=== PATIENT | female | born 1950 | race African-American/Black ===

== ENCOUNTER 2017-04-12 13:13 | Emergency (ER) | payer MEDICAID ==
[~2017-04-12] VITALS: Ht 165.1 cm; Wt 63.0 kg
[~2017-04-12 13:13] MED LIST: AMLO10TA80 PO; ASPI-1159 PO; ATEN50TA PO; BENA40TA3 PO; GABA-531 PO; GLIP10TA10 PO; METF500T4 PO; NORT10CA PO; PARO30TA62 PO; PIOG45TA5 PO; TEMA30CA PO
[2017-04-12 13:38] VITALS: BP 175/77
== END 2017-04-12 16:21 | disposition left against medical advice (07) ==
LOC: ER 13:48
DX: Z53.21 Procedure and treatment not carried out due to patient leaving prior to being seen by health care provider (principal)

== ENCOUNTER 2018-05-04 06:49 | Inpatient (IN) | payer MEDICARE, MEDICAID ==
[~2018-05-04] VITALS: Ht 162.6 cm; Wt 74.4 kg
[~2018-05-04 06:49] MED LIST changes: -BENA40TA3 PO; +BENA40TA9 PO; +METF-414 PO; -METF500T4 PO
[2018-05-04] MEDS ORDERED: MORPHINE SULFATE 4 MG/ML CPJ (NOT FOR IM USE) IV STA (07:11)
[2018-05-04] MEDS ORDERED: ONDANSETRON HCL 4MG/2ML INJ IV STA (07:11)
[2018-05-04] MEDS ORDERED: SODIUM CHLORIDE 0.9% 1,000 ML IV ONE (07:11)
[2018-05-04] MEDS ORDERED: MORPHINE SULFATE 10 MG/ML CPJ IV NR (07:45)
[2018-05-04 07:49] LABS: BASOPHILS % 0.5 % (0.0-2.0); EOSINOPHILS % 0.3 % (0.0-5.0); HEMATOCRIT. 44.9 % (36.0-48.0); HEMOGLOBIN. 15.3 g/dL (12.0-16.0); LYMPHOCYTES % 22.2 % (20.0-50.0); MEAN CORPUSCULAR HEMOGLOBIN 28.2 pg (28.0-32.0); MEAN CORPUSCULAR VOLUME 82.5 fL (81.0-99.0); MEAN PLATELET VOLUME 9.2 fl (7.4-10.4); MONOCYTES % 3.2 % (2.0-8.0); NEUTROPHILS % 73.8 % (40.0-76.0); PLATELET 189 x1000/uL (130-400); RED BLOOD CELL COUNT 5.44 mill/uL (4.2-5.4); RED CELL DISTRIBUTION WIDTH 15.8 % (11.6-14.6)
[2018-05-04] MEDS ORDERED: SODIUM CHLORIDE 0.9% 1000ML BAG (SEPSIS BOLUS) IV ONE (09:00)
[2018-05-04 09:03] LABS: PROTHROMBIN TIME 10.3 sec (9.1-11.1)
[2018-05-04 09:06] LABS: CHLORIDE 101 mEq/L (98-107)
[2018-05-04 09:10] LABS: ETHANOL BLOOD < 10 mg/dL
[2018-05-04] MEDS ORDERED: IOHEXOL-300 100 ML BOTTLE ONE (11:25)
[2018-05-04 12:36] LABS: CLARITY URINE CLEAR (CLEAR); COLOR URINE YELLOW (YELLOW); KETONES URINE 1+ (NEGATIVE); LEUKOCYTE ESTERASE URINE NEGATIVE (NEGATIVE); NITRITE URINE NEGATIVE (NEGATIVE); OCCULT BLOOD URINE 1+ (NEGATIVE); PH URINE 7.5 (4.5-8.0); PROTEIN URINE 1+ (NEGATIVE); SPECIFIC GRAVITY URINE 1.023 (1.005-1.030); UROBILINOGEN URINE 0.2 E.U./dL (0.2-1.0)
[2018-05-04 18:00] VITALS: BP 125/89
[2018-05-04] MEDS ORDERED: MAGNESIUM/ALUMINUM HYDROXIDE/SIMETHICONE 30ML UDC PO PRN (18:00)
[2018-05-04] MEDS ORDERED: ACETAMINOPHEN 325MG TABLET PO PRN (18:00)
[2018-05-04 18:07] VITALS: BP 125/89
[2018-05-04] MEDS: HYDROMORPHONE HCL/PF 2MG/ML CPJ IV PRN (18:24)
[2018-05-04] MEDS: PANTOPRAZOLE SODIUM 40 MG/VIAL IV SCH (18:25)
[2018-05-04] MEDS: ONDANSETRON HCL 4MG/2ML INJ IV PRN (18:26)
[2018-05-04] MEDS ORDERED: DEXTROSE 50% WATER 50ML SYRINGE IV PRN (18:45)
[2018-05-04 20:00] VITALS: BP 101/68
[2018-05-04] MEDS: DEXT 5%/0.45% NACL 1000ML 1,000 ML IV SCH (20:26)
[2018-05-04] MEDS: BLOOD SUGAR DIAGNOSTIC STRIP TEST SCH (21:44)
[2018-05-04] MEDS: INSULIN LISPRO 100 UNITS/ML SUBCUT SCH (21:48)
[2018-05-04 22:32] LABS: *AMPHETAMINES SCREEN URINE NEGATIVE (NEGATIVE); *BARBITURATES SCREEN URINE NEGATIVE (NEGATIVE); *BENZODIAZEPINES SCREEN URINE NEGATIVE (NEGATIVE); CANNABINOID URINE SCREEN PRESUMTIVE POSITIVE (NEGATIVE); OPIATES URINE SCREEN PRESUMTIVE POSITIVE (NEGATIVE); PHENCYCLIDINE URINE SCREEN NEGATIVE (NEGATIVE)
[2018-05-04 22:33] LABS: *COCAINE SCREEN URINE NEGATIVE (NEGATIVE); METHADONE URINE SCREEN NEGATIVE (NEGATIVE)
[2018-05-04 22:39] LABS: CREATINE KINASE 134 IU/L (26-192)
[2018-05-05] VITALS (8 sets, daily range): BP systolic 112–163; BP diastolic 65–80
[2018-05-05] MEDS: ONDANSETRON HCL 4MG/2ML INJ IV PRN ×2 (03:49→09:29)
[2018-05-05] MEDS: HYDROMORPHONE HCL/PF 2MG/ML CPJ IV PRN ×3 (03:50→21:58)
[2018-05-05] MEDS ORDERED: PARO40TA75 PO (05:12)
[2018-05-05] MEDS ORDERED: AMLO10TA80 PO (05:12)
[2018-05-05] MEDS ORDERED: BENA40TA9 PO (05:12)
[2018-05-05] MEDS ORDERED: ASPI-1158 PO (05:12)
[2018-05-05] MEDS ORDERED: ATEN100T PO (05:12)
[2018-05-05] MEDS ORDERED: HYDR-459 PO (05:12)
[2018-05-05] MEDS ORDERED: ATOR10TA69 PO (05:12)
[2018-05-05] MEDS ORDERED: SIMV20TA6 PO (05:12)
[2018-05-05] MEDS: DEXT 5%/0.45% NACL 1000ML 1,000 ML IV SCH ×2 (05:19→18:55)
[2018-05-05] MEDS: BLOOD SUGAR DIAGNOSTIC STRIP TEST SCH ×4 (05:22→21:58)
[2018-05-05 06:13] LABS: CHLORIDE 98 mEq/L (98-107)
[2018-05-05 06:23] LABS: CREATINE KINASE MB FRACTION 3.5 ng/mL (0.5-3.6)
[2018-05-05 06:26] LABS: CREATINE KINASE 275 IU/L (26-192); T4 FREE 1.47 ng/dL (0.76-1.46)
[2018-05-05 06:27] LABS: HDL CHOLESTEROL 61 mg/dL (40-59); LDL CHOLESTEROL 68 mg/dL (5-100)
[2018-05-05 06:33] LABS: BASOPHILS % 0.3 % (0.0-2.0); EOSINOPHILS % 0.1 % (0.0-5.0); HEMATOCRIT. 38.8 % (36.0-48.0); HEMOGLOBIN. 12.7 g/dL (12.0-16.0); LYMPHOCYTES % 14.4 % (20.0-50.0); MEAN CORPUSCULAR HEMOGLOBIN 28.1 pg (28.0-32.0); MEAN CORPUSCULAR VOLUME 85.6 fL (81.0-99.0); MEAN PLATELET VOLUME 9.8 fl (7.4-10.4); MONOCYTES % 9.5 % (2.0-8.0); NEUTROPHILS % 75.7 % (40.0-76.0); PLATELET 164 x1000/uL (130-400); RED BLOOD CELL COUNT 4.53 mill/uL (4.2-5.4); RED CELL DISTRIBUTION WIDTH 14.1 % (11.6-14.6)
[2018-05-05] MEDS: PANTOPRAZOLE SODIUM 40 MG/VIAL IV SCH ×2 (08:49→13:34)
[2018-05-05] MEDS: INSULIN LISPRO 100 UNITS/ML SUBCUT SCH ×4 (08:51→21:58)
[2018-05-05] MEDS: METOCLOPRAMIDE HCL 10MG/2ML VIAL IV PRN (10:54)
[2018-05-05] MEDS: CLONIDINE 0.1MG TABLET PO PRN ×2 (11:07→20:37)
[2018-05-05] MEDS: AMLODIPINE 10MG TABLET PO SCH (13:36)
[2018-05-05] MEDS: ATENOLOL 100 MG TABLET PO SCH (13:49)
[2018-05-05] MEDS: ATORVASTATIN CALCIUM 10MG TABLET PO SCH (20:37)
[2018-05-06] VITALS (7 sets, daily range): BP systolic 108–170; BP diastolic 57–72
[2018-05-06] MEDS: CLONIDINE 0.1MG TABLET PO PRN (05:56)
[2018-05-06] MEDS: BLOOD SUGAR DIAGNOSTIC STRIP TEST SCH ×4 (06:22→20:42)
[2018-05-06] MEDS: INSULIN LISPRO 100 UNITS/ML SUBCUT SCH ×4 (08:55→20:50)
[2018-05-06] MEDS: METOCLOPRAMIDE HCL 10MG/2ML VIAL IV PRN (08:55)
[2018-05-06] MEDS: HYDROMORPHONE HCL/PF 2MG/ML CPJ IV PRN ×2 (08:57→21:27)
[2018-05-06] MEDS: ATENOLOL 100 MG TABLET PO SCH (08:57)
[2018-05-06] MEDS: AMLODIPINE 10MG TABLET PO SCH (08:57)
[2018-05-06] MEDS: PANTOPRAZOLE SODIUM 40 MG/VIAL IV SCH ×2 (08:57→08:58)
[2018-05-06] MEDS: DEXT 5%/0.45% NACL 1000ML 1,000 ML IV SCH ×2 (08:58→20:39)
[2018-05-06] MEDS: ATORVASTATIN CALCIUM 10MG TABLET PO SCH (20:39)
[2018-05-07 04:00] VITALS: BP 148/72
[2018-05-07] MEDS: BLOOD SUGAR DIAGNOSTIC STRIP TEST SCH ×2 (07:40→12:40)
[2018-05-07 07:56] LABS: BASOPHILS % 0.7 % (0.0-2.0); EOSINOPHILS % 1.5 % (0.0-5.0); HEMATOCRIT. 39.6 % (36.0-48.0); LYMPHOCYTES % 32.5 % (20.0-50.0); MEAN CORPUSCULAR HEMOGLOBIN 27.9 pg (28.0-32.0); MEAN CORPUSCULAR VOLUME 85.2 fL (81.0-99.0); MEAN PLATELET VOLUME 9.7 fl (7.4-10.4); MONOCYTES % 8.7 % (2.0-8.0); NEUTROPHILS % 56.6 % (40.0-76.0); PLATELET 143 x1000/uL (130-400); RED BLOOD CELL COUNT 4.65 mill/uL (4.2-5.4)
[2018-05-07 08:00] VITALS: BP 179/91
[2018-05-07] MEDS: AMLODIPINE 10MG TABLET PO SCH (08:29)
[2018-05-07] MEDS: INSULIN LISPRO 100 UNITS/ML SUBCUT SCH ×2 (08:29→13:51)
[2018-05-07] MEDS: METOCLOPRAMIDE HCL 10MG/2ML VIAL IV PRN (08:30)
[2018-05-07] MEDS: CLONIDINE 0.1MG TABLET PO PRN (08:30)
[2018-05-07] MEDS: ATENOLOL 100 MG TABLET PO SCH (08:30)
[2018-05-07] MEDS: HYDROMORPHONE HCL/PF 2MG/ML CPJ IV PRN (08:32)
[2018-05-07] MEDS: PANTOPRAZOLE SODIUM 40 MG/VIAL IV SCH (08:54)
[2018-05-07 09:51] LABS: CHLORIDE 107 mEq/L (98-107)
[2018-05-07 12:00] VITALS: BP 166/72
[2018-05-07 13:16] VITALS: BP 166/72
[2018-05-08] MEDS ORDERED: FAMOTIDINE 20MG/2ML VIAL IV SCH (09:00)
== END 2018-05-07 14:40 | disposition home or self-care (01) | DRG 440 ==
LOC: ER 06:49 → 7WST 09:42 → EDBEDREQ 09:47 → ENRESERV 15:15
PROVIDERS: ADMIT Hospitalist; ATTEND Hospitalist
DX: K85.90 Acute pancreatitis without necrosis or infection, unspecified (principal); E11.43 Type 2 diabetes mellitus with diabetic autonomic (poly)neuropathy; I10 Essential (primary) hypertension; K31.84 Gastroparesis; E11.65 Type 2 diabetes mellitus with hyperglycemia; F17.210 Nicotine dependence, cigarettes, uncomplicated; Z98.51 Tubal ligation status; Z79.82 Long term (current) use of aspirin; Z79.899 Other long term (current) drug therapy
CPT/HCPCS: 36415; 71045; 74177; 80061; 80305; 82550; 82553; 82962; 83036; 83605; 83735; 83880; 84439; 84443; 84484; 86850; 86900; 93005; 93970; 96374; 99285; C1893; C9113; G0482; J1170; J1815; J2270; J2405; J2765; J3490; J7030; Q9967

== ENCOUNTER 2018-07-17 07:48 | Inpatient (IN) | payer OTHER, MEDICAID ==
[~2018-07-17] VITALS: Ht 165.1 cm; Wt 68.0 kg
[~2018-07-17 07:48] MED LIST changes: +ASPI-1158 PO; -ASPI-1159 PO; +ATEN100T PO; -ATEN50TA PO; +ATOR10TA69 PO; -GABA-531 PO; -GLIP10TA10 PO; +HYDR-459 PO; -METF-414 PO; -NORT10CA PO; -PARO30TA62 PO; +PARO40TA75 PO; -PIOG45TA5 PO; +SIMV20TA6 PO; -TEMA30CA PO
[2018-07-17] MEDS ORDERED: SODIUM CHLORIDE 0.9% 1,000 ML IV ONE (08:35)
[2018-07-17] MEDS ORDERED: FAMOTIDINE 20MG/2ML VIAL IV STA (08:35)
[2018-07-17] MEDS ORDERED: ONDANSETRON HCL 4MG/2ML INJ IV STA (08:35)
[2018-07-17] MEDS ORDERED: MORPHINE SULFATE 4 MG/ML CPJ (NOT FOR IM USE) IV STA (08:35)
[2018-07-17 08:57] LABS: BASOPHILS % 0.7 % (0.0-2.0); EOSINOPHILS % 0.1 % (0.0-5.0); HEMATOCRIT. 42.9 % (36.0-48.0); HEMOGLOBIN. 14.1 g/dL (12.0-16.0); LYMPHOCYTES % 18.2 % (20.0-50.0); MEAN CORPUSCULAR HEMOGLOBIN 28.3 pg (28.0-32.0); MEAN CORPUSCULAR VOLUME 85.9 fL (81.0-99.0); MEAN PLATELET VOLUME 9.1 fl (7.4-10.4); PLATELET 148 x1000/uL (130-400); RED CELL DISTRIBUTION WIDTH 14.5 % (11.6-14.6)
[2018-07-17 09:05] LABS: CHLORIDE 98 mEq/L (98-107)
[2018-07-17 09:08] LABS: INR 1.1; PARTIAL THROMBOPLASTIN TIME 26.3 sec (23.4-31.0); PROTHROMBIN TIME 10.7 sec (9.1-11.1)
[2018-07-17 09:13] LABS: ETHANOL BLOOD < 10 mg/dL
[2018-07-17 10:07] LABS: CLARITY URINE CLEAR (CLEAR); COLOR URINE YELLOW (YELLOW); KETONES URINE 2+ (NEGATIVE); LEUKOCYTE ESTERASE URINE NEGATIVE (NEGATIVE); NITRITE URINE NEGATIVE (NEGATIVE); OCCULT BLOOD URINE 2+ (NEGATIVE); PROTEIN URINE 3+ (NEGATIVE); SPECIFIC GRAVITY URINE 1.024 (1.005-1.030)
[2018-07-17 10:54] LABS: *BARBITURATES SCREEN URINE NEGATIVE (NEGATIVE); *BENZODIAZEPINES SCREEN URINE NEGATIVE (NEGATIVE); *COCAINE SCREEN URINE NEGATIVE (NEGATIVE); CANNABINOID URINE SCREEN PRESUMTIVE POSITIVE (NEGATIVE); METHADONE URINE SCREEN NEGATIVE (NEGATIVE); PHENCYCLIDINE URINE SCREEN NEGATIVE (NEGATIVE)
[2018-07-17 11:14] LABS: *AMPHETAMINES SCREEN URINE NEGATIVE (NEGATIVE)
[2018-07-17 11:18] LABS: OPIATES URINE SCREEN NEGATIVE (NEGATIVE)
[2018-07-17] MEDS ORDERED: ASPIRIN 325MG EC TABLET PO ONE (12:15)
[2018-07-17] MEDS ORDERED: METOCLOPRAMIDE HCL 10MG/2ML VIAL IV ONE (12:30)
[2018-07-17] MEDS ORDERED: ENOXAPARIN 60MG/0.6ML SYR SUBCUT ONE (12:45)
[2018-07-17] MEDS ORDERED: NITROGLYCERIN 0.4MG TABLET SL SL PRN (13:15)
[2018-07-17] MEDS ORDERED: MAGNESIUM/ALUMINUM HYDROXIDE/SIMETHICONE 30ML UDC PO PRN (13:15)
[2018-07-17] MEDS ORDERED: ACETAMINOPHEN 325MG TABLET PO PRN (13:15)
[2018-07-17] MEDS ORDERED: IPRATROPIUM/ALBUTEROL 0.5-3(2.5)MG/3ML NEB INH PRN (13:15)
[2018-07-17] MEDS ORDERED: DIPHENHYDRAMINE 50MG/ML VIAL IV PRN (13:15)
[2018-07-17] MEDS ORDERED: DOCUSATE SODIUM 100MG CAPSULE PO PRN (13:15)
[2018-07-17] MEDS ORDERED: LORAZEPAM 0.5MG TABLET PO PRN (13:15)
[2018-07-17] MEDS ORDERED: GUAIFENESIN 200MG/10ML SUGAR FREE UDC PO PRN (13:15)
[2018-07-17] MEDS ORDERED: CLONIDINE 0.1MG TABLET PO PRN (13:15)
[2018-07-17] MEDS ORDERED: ONDANSETRON HCL 4MG/2ML INJ IV ONE (13:30)
[2018-07-17] MEDS ORDERED: METOPROLOL TARTRATE 25MG TABLET PO NR ×2 (14:52→21:03)
[2018-07-17] MEDS ORDERED: TRAMADOL 50MG TABLET PO PRN (16:30)
[2018-07-17 18:28] LABS: CREATINE KINASE MB FRACTION 2.8 ng/mL (0.5-3.6)
[2018-07-17] MEDS: ONDANSETRON HCL 4MG/2ML INJ IV PRN (19:13)
[2018-07-17] MEDS ORDERED: DEXTROSE 50% WATER 50ML SYRINGE IV PRN (20:15)
[2018-07-17] MEDS ORDERED: ZOLPIDEM TARTRATE 5MG TABLET PO PRN (21:00)
[2018-07-17] MEDS ORDERED: NA PHOS,M-B/NA PHOS,DI-BA ENEMA 118ML PR PRN (21:00)
[2018-07-17 22:00] VITALS: BP 168/83
[2018-07-17] MEDS: ENOXAPARIN 60MG/0.6ML SYR SUBCUT SCH (22:02)
[2018-07-17] MEDS: ATORVASTATIN CALCIUM 40MG TABLET PO SCH (22:02)
[2018-07-17] MEDS: MORPHINE SULFATE 4 MG/ML CPJ (NOT FOR IM USE) IV PRN (22:16)
[2018-07-17] MEDS: BLOOD SUGAR DIAGNOSTIC STRIP TEST SCH (22:20)
[2018-07-17] MEDS: INSULIN LISPRO 100 UNITS/ML SUBCUT SCH (22:24)
[2018-07-17 22:46] VITALS: BP 168/81
[2018-07-17 23:34] LABS: CREATINE KINASE MB FRACTION 2.5 ng/mL (0.5-3.6)
[2018-07-18] VITALS (13 sets, daily range): BP systolic 93–146; BP diastolic 56–87
[2018-07-18 05:55] LABS: BASOPHILS % 0.5 % (0.0-2.0); EOSINOPHILS % 0.7 % (0.0-5.0); HEMATOCRIT. 38.4 % (36.0-48.0); HEMOGLOBIN. 12.6 g/dL (12.0-16.0); LYMPHOCYTES % 39.5 % (20.0-50.0); MEAN CORPUSCULAR HEMOGLOBIN 28.4 pg (28.0-32.0); MEAN CORPUSCULAR VOLUME 86.5 fL (81.0-99.0); MEAN PLATELET VOLUME 9.7 fl (7.4-10.4); MONOCYTES % 11.4 % (2.0-8.0); NEUTROPHILS % 47.9 % (40.0-76.0); PLATELET 133 x1000/uL (130-400); RED BLOOD CELL COUNT 4.44 mill/uL (4.2-5.4); RED CELL DISTRIBUTION WIDTH 14.4 % (11.6-14.6)
[2018-07-18 06:54] LABS: CHLORIDE 100 mEq/L (98-107)
[2018-07-18] MEDS: BLOOD SUGAR DIAGNOSTIC STRIP TEST SCH ×4 (08:23→20:10)
[2018-07-18] MEDS: METOPROLOL TARTRATE 25MG TABLET PO SCH ×2 (08:25→20:07)
[2018-07-18] MEDS: FAMOTIDINE 20MG TABLET PO SCH ×2 (08:25→20:07)
[2018-07-18] MEDS: ASPIRIN 325MG EC TABLET PO SCH (08:25)
[2018-07-18] MEDS: ENOXAPARIN 60MG/0.6ML SYR SUBCUT SCH ×2 (08:26→20:10)
[2018-07-18] MEDS: INSULIN LISPRO 100 UNITS/ML SUBCUT SCH ×4 (08:31→21:28)
[2018-07-18] MEDS ORDERED: REGADENOSON 0.4 MG/5 ML IV NR (10:15)
[2018-07-18] MEDS: MORPHINE SULFATE 4 MG/ML CPJ (NOT FOR IM USE) IV PRN (12:34)
[2018-07-18] MEDS: ONDANSETRON HCL 4MG/2ML INJ IV PRN (20:07)
[2018-07-18] MEDS: ATORVASTATIN CALCIUM 40MG TABLET PO SCH (20:09)
[2018-07-18] MEDS ORDERED: ENOXAPARIN 80MG/0.8ML SYR SUBCUT SCH (21:00)
[2018-07-19] VITALS (12 sets, daily range): BP systolic 67–157; BP diastolic 28–89
[2018-07-19 07:04] LABS: BASOPHILS % 0.6 % (0.0-2.0); EOSINOPHILS % 1.1 % (0.0-5.0); HEMATOCRIT. 43.1 % (36.0-48.0); LYMPHOCYTES % 39.9 % (20.0-50.0); MEAN CORPUSCULAR HEMOGLOBIN 28.3 pg (28.0-32.0); MEAN PLATELET VOLUME 9.9 fl (7.4-10.4); MONOCYTES % 10.5 % (2.0-8.0); NEUTROPHILS % 47.9 % (40.0-76.0); PLATELET 147 x1000/uL (130-400); RED BLOOD CELL COUNT 4.95 mill/uL (4.2-5.4); RED CELL DISTRIBUTION WIDTH 13.7 % (11.6-14.6)
[2018-07-19] MEDS: INSULIN LISPRO 100 UNITS/ML SUBCUT SCH ×4 (08:00→21:37)
[2018-07-19] MEDS: BLOOD SUGAR DIAGNOSTIC STRIP TEST SCH ×4 (08:01→21:24)
[2018-07-19 08:52] LABS: CHLORIDE 103 mEq/L (98-107)
[2018-07-19] MEDS ORDERED: REGADENOSON 0.4 MG/5 ML IV ONE (09:43)
[2018-07-19] MEDS: ASPIRIN 325MG EC TABLET PO SCH (10:35)
[2018-07-19] MEDS: METOPROLOL TARTRATE 25MG TABLET PO SCH ×2 (10:36→21:24)
[2018-07-19] MEDS: FAMOTIDINE 20MG TABLET PO SCH ×2 (10:36→21:24)
[2018-07-19] MEDS: ENOXAPARIN 80MG/0.8ML SYR SUBCUT SCH ×2 (10:37→21:23)
[2018-07-19 13:34] LABS: HEPATITIS B SURFACE ANTIGEN NEGATIVE
[2018-07-19 14:04] LABS: HEPATITIS A AB IGM NEGATIVE (NEGATIVE)
[2018-07-19] MEDS: FLUCONAZOLE 200 MG/100ML BAG 100 ML IV SCH (15:01)
[2018-07-19] MEDS ORDERED: SODIUM CHLORIDE 0.45% 1,000 ML IV SCH (17:30)
[2018-07-19] MEDS ORDERED: LEVOFLOXACIN 500MG PREMIX 100 ML IV SCH (20:00)
[2018-07-19] MEDS: ATORVASTATIN CALCIUM 40MG TABLET PO SCH (21:23)
[2018-07-20] VITALS (9 sets, daily range): BP systolic 81–159; BP diastolic 30–80
[2018-07-20] MEDS: MORPHINE SULFATE 4 MG/ML CPJ (NOT FOR IM USE) IV PRN (04:05)
[2018-07-20 06:54] LABS: HEMOGLOBIN 13.6 g/dL (12.0-16.0); MEAN CORPUSCULAR HEMOGLOBIN 28.1 pg (28.0-32.0); MEAN CORPUSCULAR VOLUME 86.8 fL (81.0-99.0); PLATELET 154 x1000/uL (130-400); RED BLOOD CELL COUNT 4.84 mill/uL (4.2-5.4); RED CELL DISTRIBUTION WIDTH 13.9 % (11.6-14.6)
[2018-07-20 07:17] LABS: CHLORIDE 102 mEq/L (98-107)
[2018-07-20] MEDS: BLOOD SUGAR DIAGNOSTIC STRIP TEST SCH ×2 (07:30→12:42)
[2018-07-20] MEDS: FAMOTIDINE 20MG TABLET PO SCH (09:07)
[2018-07-20] MEDS: METOPROLOL TARTRATE 25MG TABLET PO SCH (09:07)
[2018-07-20] MEDS: ASPIRIN 325MG EC TABLET PO SCH (09:07)
[2018-07-20] MEDS: ENOXAPARIN 80MG/0.8ML SYR SUBCUT SCH (09:08)
[2018-07-20] MEDS: INSULIN LISPRO 100 UNITS/ML SUBCUT SCH ×2 (09:10→12:46)
[2018-07-20] MEDS: FLUCONAZOLE 200 MG/100ML BAG 100 ML IV SCH (12:46)
[2018-07-20] MEDS ORDERED: LEVOFLOXACIN 250MG PREMIX 50 ML IV SCH (20:00)
== END 2018-07-20 17:20 | disposition home or self-care (01) | DRG 280 ==
LOC: ER 08:36 → EDBEDREQSVC 12:49 → EDBEDREQ 12:49 → ENRESERV 20:15 → 5EST 21:43
PROVIDERS: ADMIT Internal Medicine; ATTEND Internal Medicine
DX: I21.4 Non-ST elevation (NSTEMI) myocardial infarction (principal); I50.33 Acute on chronic diastolic (congestive) heart failure; K86.1 Other chronic pancreatitis; N39.0 Urinary tract infection, site not specified; K92.0 Hematemesis; K52.9 Noninfective gastroenteritis and colitis, unspecified; E11.65 Type 2 diabetes mellitus with hyperglycemia; K80.20 Calculus of gallbladder without cholecystitis without obstruction; B19.20 Unspecified viral hepatitis C without hepatic coma; E78.5 Hyperlipidemia, unspecified; E78.00 Pure hypercholesterolemia, unspecified; D25.9 Leiomyoma of uterus, unspecified; E11.40 Type 2 diabetes mellitus with diabetic neuropathy, unspecified; E86.0 Dehydration; F17.210 Nicotine dependence, cigarettes, uncomplicated; F32.9 Major depressive disorder, single episode, unspecified; F41.9 Anxiety disorder, unspecified; I11.0 Hypertensive heart disease with heart failure; Z79.4 Long term (current) use of insulin; Z82.49 Family history of ischemic heart disease and other diseases of the circulatory system; Z86.73 Personal history of transient ischemic attack (TIA), and cerebral infarction without residual deficits; Z79.82 Long term (current) use of aspirin; Z79.899 Other long term (current) drug therapy
CPT/HCPCS: 36415; 71045; 74176; 76700; 78452; 80048; 80061; 80305; 82550; 82553; 82962; 83036; 83605; 83735; 83880; 84484; 85027; 85379; 86705; 86709; 86803; 87340; 93005; 93017; 93306; 93923; 93970; 96361; 96374; 96375; 97162; 99285; A9500; J1450; J1650; J1815; J1956; J2270; J2405; J2765; J2785; J3490; J7030; J7050

== ENCOUNTER 2020-02-09 21:06 | Emergency (ER) | payer OTHER, MEDICAID ==
[~2020-02-09] VITALS: Ht 167.6 cm; Wt 68.0 kg
[2020-02-09] MEDS ORDERED: SODIUM CHLORIDE 0.9% 1,000 ML IV ONE (21:34)
[2020-02-09 22:02] LABS: BASOPHILS % 0.9 % (0.0-2.0); EOSINOPHILS % 1.7 % (0.0-5.0); HEMATOCRIT. 39.2 % (36.0-48.0); HEMOGLOBIN. 12.9 g/dL (12.0-16.0); LYMPHOCYTES % 20.9 % (20.0-50.0); MEAN CORPUSCULAR HEMOGLOBIN 28.5 pg (28.0-32.0); MEAN CORPUSCULAR VOLUME 86.8 fL (81.0-99.0); MEAN PLATELET VOLUME 9.2 fl (7.4-10.4); MONOCYTES % 4.2 % (2.0-8.0); NEUTROPHILS % 72.3 % (40.0-76.0); PLATELET 181 x1000/uL (130-400); RED BLOOD CELL COUNT 4.52 mill/uL (4.2-5.4); RED CELL DISTRIBUTION WIDTH 14.8 % (11.6-14.6)
[2020-02-09 22:07] LABS: CHLORIDE 106 mEq/L (98-107)
[2020-02-09 23:06] LABS: CLARITY URINE CLEAR (CLEAR); COLOR URINE YELLOW (YELLOW); KETONES URINE NEGATIVE (NEGATIVE); LEUKOCYTE ESTERASE URINE NEGATIVE (NEGATIVE); NITRITE URINE NEGATIVE (NEGATIVE); OCCULT BLOOD URINE NEGATIVE (NEGATIVE); PROTEIN URINE TRACE (NEGATIVE); SPECIFIC GRAVITY URINE 1.009 (1.005-1.030)
[2020-02-09 23:24] LABS: *BARBITURATES SCREEN URINE NEGATIVE (NEGATIVE); *BENZODIAZEPINES SCREEN URINE NEGATIVE (NEGATIVE); *COCAINE SCREEN URINE NEGATIVE (NEGATIVE)
[2020-02-09 23:25] LABS: CANNABINOID URINE SCREEN PRESUMTIVE POSITIVE (NEGATIVE); METHADONE URINE SCREEN NEGATIVE (NEGATIVE); OPIATES URINE SCREEN NEGATIVE (NEGATIVE)
[2020-02-09 23:29] LABS: *AMPHETAMINES SCREEN URINE NEGATIVE (NEGATIVE)
[2020-02-09 23:30] LABS: PHENCYCLIDINE URINE SCREEN NEGATIVE (NEGATIVE)
[2020-02-10] MEDS: POLYETHYLENE GLYCOL 3350 (17GM) 1 DOSE PACK PO NR ×2 (00:34→00:55)
[2020-02-10 00:53] VITALS: BP 150/82
== END 2020-02-10 00:56 | disposition home or self-care (01) ==
LOC: ER 21:06
DX: K59.00 Constipation, unspecified (principal); D25.9 Leiomyoma of uterus, unspecified; I10 Essential (primary) hypertension; E11.9 Type 2 diabetes mellitus without complications
CPT/HCPCS: 36415; 74176; 80053; 80305; 81003; 83690; 85025; 93005; 96360; 99285; J7030

== ENCOUNTER 2021-02-28 18:05 | Emergency (ER) | payer MEDICARE, MEDICAID ==
[~2021-02-28] VITALS: Ht 167.6 cm; Wt 69.0 kg
[2021-02-28] MEDS ORDERED: ONDANSETRON HCL 4MG/2ML INJ IV STA (18:36)
[2021-02-28] MEDS ORDERED: SODIUM CHLORIDE 0.9% 1,000 ML IV ONE (18:45)
[2021-02-28 19:05] LABS: BASOPHILS % 0.3 % (0.0-2.0); HEMATOCRIT. 46.2 % (36.0-48.0); HEMOGLOBIN. 15.5 g/dL (12.0-16.0); LYMPHOCYTES % 9.8 % (20.0-50.0); MEAN CORPUSCULAR HEMOGLOBIN 28.5 pg (28.0-32.0); MEAN CORPUSCULAR VOLUME 84.8 fL (81.0-99.0); MEAN PLATELET VOLUME 9.1 fl (7.4-10.4); MONOCYTES % 3.7 % (2.0-8.0); NEUTROPHILS % 86.2 % (40.0-76.0); PLATELET 221 x1000/uL (130-400); RED BLOOD CELL COUNT 5.45 mill/uL (4.2-5.4); RED CELL DISTRIBUTION WIDTH 14.7 % (11.6-14.6)
[2021-02-28 19:08] LABS: CHLORIDE 96 mEq/L (98-107)
[2021-02-28] MEDS ORDERED: INSULIN LISPRO 100 UNITS/ML SUBCUT ONE (19:30)
[2021-02-28 20:46] LABS: CLARITY URINE CLEAR (CLEAR); COLOR URINE YELLOW (YELLOW); KETONES URINE 1+ (NEGATIVE); LEUKOCYTE ESTERASE URINE NEGATIVE (NEGATIVE); NITRITE URINE NEGATIVE (NEGATIVE); OCCULT BLOOD URINE 2+ (NEGATIVE); PH URINE 5.5 (4.5-8.0); PROTEIN URINE 3+ (NEGATIVE); SPECIFIC GRAVITY URINE 1.026 (1.005-1.030); UROBILINOGEN URINE 0.2 E.U./dL (0.2-1.0)
[2021-02-28] MEDS ORDERED: MAGNESIUM/ALUMINUM HYDROXIDE/SIMETHICONE 30ML UDC PO ONE (21:30)
[2021-02-28] MEDS ORDERED: IOHEXOL-300 100 ML BOTTLE ONE (22:20)
[2021-02-28] MEDS ORDERED: ONDA4TAB5 MT (22:52)
[2021-02-28 22:55] VITALS: BP 163/81
[2021-03-01] MEDS ORDERED: ACET-2708 MT (04:47)
[2021-03-01] MEDS ORDERED: COM10 MT (04:47)
== END 2021-02-28 23:05 | disposition home or self-care (01) ==
LOC: ER 18:05
DX: K52.9 Noninfective gastroenteritis and colitis, unspecified (principal); E11.9 Type 2 diabetes mellitus without complications; I10 Essential (primary) hypertension; Z98.51 Tubal ligation status
CPT/HCPCS: 36415; 74177; 80053; 81003; 82962; 83690; 85025; 96361; 96374; 99285; J1815; J2405; J7030; Q9967; 96372

== ENCOUNTER 2021-02-28 23:57 | Emergency (ER) | payer OTHER, MEDICAID ==
[~2021-02-28] VITALS: Ht 160 cm; Wt 54.2 kg
[~2021-02-28 23:57] MED LIST changes: -AMLO10TA80 PO; -ASPI-1158 PO; -ATEN100T PO; -ATOR10TA69 PO; -BENA40TA9 PO; -HYDR-459 PO; +ONDA4TAB5 MT; -PARO40TA75 PO; -SIMV20TA6 PO
[2021-03-01] MEDS ORDERED: SODIUM CHLORIDE 0.9% 1,000 ML IV ONE (01:30)
[2021-03-01] MEDS ORDERED: PROCHLORPERAZINE 10MG/2ML VIAL IM ONE (01:30)
[2021-03-01 01:56] LABS: BASOPHILS % 0.3 % (0.0-2.0); HEMATOCRIT. 42.4 % (36.0-48.0); HEMOGLOBIN. 14.3 g/dL (12.0-16.0); LYMPHOCYTES % 8.2 % (20.0-50.0); MEAN CORPUSCULAR HEMOGLOBIN 28.8 pg (28.0-32.0); MEAN CORPUSCULAR VOLUME 85.3 fL (81.0-99.0); MONOCYTES % 7.7 % (2.0-8.0); NEUTROPHILS % 83.8 % (40.0-76.0); PLATELET 212 x1000/uL (130-400); RED BLOOD CELL COUNT 4.97 mill/uL (4.2-5.4)
[2021-03-01 02:03] LABS: CHLORIDE 99 mEq/L (98-107)
[2021-03-01] MEDS ORDERED: COM10 MT (04:47)
[2021-03-01] MEDS ORDERED: ACET-2708 MT (04:47)
[2021-03-01 04:58] VITALS: BP 169/84
== END 2021-03-01 05:00 | disposition home or self-care (01) ==
LOC: ER 23:57
DX: K52.9 Noninfective gastroenteritis and colitis, unspecified (principal); R11.2 Nausea with vomiting, unspecified; F17.200 Nicotine dependence, unspecified, uncomplicated; I10 Essential (primary) hypertension; E11.9 Type 2 diabetes mellitus without complications; Z98.890 Other specified postprocedural states; Z98.51 Tubal ligation status
CPT/HCPCS: 36415; 80053; 82962; 83605; 83690; 85025; 96360; 96372; 99283; J0780; J7030

== ENCOUNTER 2021-10-20 12:17 | Emergency (ER) | payer OTHER, MEDICAID ==
[~2021-10-20] VITALS: Ht 160 cm; Wt 49.9 kg
[~2021-10-20 12:17] MED LIST changes: +ACET-2708 MT; +COM10 MT
[2021-10-20 12:21] VITALS: BP 190/100
[2021-10-20] MEDS ORDERED: LORAZEPAM 1MG TABLET PO ONE (18:30)
[2021-10-20 19:00] LABS: BASOPHILS % 0.6 % (0.0-2.0); EOSINOPHILS % 0.8 % (0.0-5.0); HEMOGLOBIN. 14.7 g/dL (12.0-16.0); LYMPHOCYTES % 30.5 % (20.0-50.0); MEAN CORPUSCULAR HEMOGLOBIN 27.7 pg (28.0-32.0); MEAN CORPUSCULAR VOLUME 85.1 fL (81.0-99.0); MEAN PLATELET VOLUME 9.4 fl (7.4-10.4); MONOCYTES % 6.8 % (2.0-8.0); NEUTROPHILS % 61.3 % (40.0-76.0); PLATELET 176 x1000/uL (130-400); RED BLOOD CELL COUNT 5.28 mill/uL (4.2-5.4); RED CELL DISTRIBUTION WIDTH 14.3 % (11.6-14.6)
[2021-10-20 19:14] LABS: CHLORIDE 107 mEq/L (98-107)
[2021-10-20 21:29] LABS: CLARITY URINE CLOUDY (CLEAR); COLOR URINE DARK YELLOW (YELLOW); KETONES URINE TRACE (NEGATIVE); LEUKOCYTE ESTERASE URINE TRACE (NEGATIVE); NITRITE URINE NEGATIVE (NEGATIVE); OCCULT BLOOD URINE TRACE (NEGATIVE); PH URINE 5.5 (4.5-8.0); PROTEIN URINE 3+ (NEGATIVE); SPECIFIC GRAVITY URINE 1.028 (1.005-1.030)
[2021-10-20] MEDS ORDERED: CEPH500C2 MT (21:59)
[2021-10-20] MEDS ORDERED: BENZ12SO MM (21:59)
[2021-10-20] MEDS ORDERED: FLUC150T5 MT (21:59)
== END 2021-10-20 22:27 | disposition home or self-care (01) ==
LOC: ER 12:34
DX: N39.0 Urinary tract infection, site not specified (principal); B37.3 Candidiasis of vulva and vagina; F43.12 Post-traumatic stress disorder, chronic; F41.0 Panic disorder [episodic paroxysmal anxiety]; I10 Essential (primary) hypertension; E11.9 Type 2 diabetes mellitus without complications; Z91.14 Patient's other noncompliance with medication regimen; M32.9 Systemic lupus erythematosus, unspecified; Z86.73 Personal history of transient ischemic attack (TIA), and cerebral infarction without residual deficits
CPT/HCPCS: 36415; 71045; 80053; 81003; 84484; 85025; 99284

== ENCOUNTER 2023-05-30 09:35 | Emergency (ER) | payer OTHER, MEDICAID ==
[~2023-05-30] VITALS: Ht 160 cm; Wt 48.0 kg
[~2023-05-30 09:35] MED LIST changes: +BENZ12SO MM; +CEPH500C2 MT; +FLUC150T46 MT
[2023-05-30 09:40] VITALS: O2SAT 94
[2023-05-30] MEDS ORDERED: LORAZEPAM 0.5MG TABLET PO ONE ×2 (09:45→17:15)
[2023-05-30 10:11] LABS: BASOPHILS % 0.5 % (0.0-2.0); HEMATOCRIT. 45.1 % (36.0-48.0); HEMOGLOBIN. 14.4 g/dL (12.0-16.0); LYMPHOCYTES % 25.3 % (20.0-50.0); MEAN CORPUSCULAR HEMOGLOBIN 28.2 pg (28.0-32.0); MEAN CORPUSCULAR HGB CONC 31.9 g/dL (31.0-37.0); MEAN CORPUSCULAR VOLUME 88.2 fL (81.0-99.0); MEAN PLATELET VOLUME 8.8 fl (7.4-10.4); MONOCYTES % 6.1 % (2.0-8.0); NEUTROPHILS % 67.1 % (40.0-76.0); PLATELET 234 x1000/uL (130-400); RED BLOOD CELL COUNT 5.11 mill/uL (4.2-5.4); RED CELL DISTRIBUTION WIDTH 14.3 % (11.6-14.6); WHITE BLOOD COUNT 7.3 x1000/uL (4.5-11.0)
[2023-05-30 10:28] LABS: CLARITY URINE CLOUDY (CLEAR); COLOR URINE YELLOW (YELLOW); GLUCOSE URINE TRACE (NEGATIVE); KETONES URINE NEGATIVE (NEGATIVE); LEUKOCYTE ESTERASE URINE NEGATIVE (NEGATIVE); NITRITE URINE NEGATIVE (NEGATIVE); OCCULT BLOOD URINE TRACE (NEGATIVE); PH URINE 6.5 (4.5-8.0); PROTEIN URINE 3+ (NEGATIVE); SPECIFIC GRAVITY URINE 1.013 (1.005-1.030)
[2023-05-30 10:33] LABS: ACETAMINOPHEN < 2 ug/mL (10-30); ALANINE AMINOTRANSFERASE 14 IU/L (10-49); ALBUMIN 4.1 g/dL (3.2-4.8); ASPARTATE AMINOTRANSFERASE 20 IU/L (<34); BILIRUBIN TOTAL 0.3 mg/dL (0.1-1.0); CALCIUM 9.8 mg/dL (8.7-10.4); CARBON DIOXIDE 26 mEq/L (21-32); CHLORIDE 103 mEq/L (98-107); CREATININE 0.9 mg/dL (0.6-1.0); GLUCOSE 215 mg/dL (70-105); PROTEIN TOTAL 8.5 g/dL (6.0-8.3); SODIUM 137 mEq/L (136-145); TROPONIN I HIGH SENSITIVITY 19 ng/L (3.0-34); UREA NITROGEN BLOOD 21 mg/dL (9-23)
[2023-05-30 10:40] LABS: ETHANOL BLOOD < 10 mg/dL (<10)
[2023-05-30 11:09] LABS: SQUAMOUS EPITHELIAL CELL URINE 3+ /lpf (RARE/1+)
[2023-05-30 11:10] LABS: BACTERIA URINE 1+; YEAST URINE 1+
[2023-05-30 11:11] LABS: RBC URINE 0-2 /hpf (0-2); WBC URINE 0-2 /hpf (0-2)
[2023-05-30 11:32] LABS: *AMPHETAMINES SCREEN URINE NEGATIVE (NEGATIVE); *BARBITURATES SCREEN URINE NEGATIVE (NEGATIVE); *BENZODIAZEPINES SCREEN URINE NEGATIVE (NEGATIVE); *COCAINE SCREEN URINE NEGATIVE (NEGATIVE); ECSTASY MDMA SCREEN URINE NEGATIVE (NEGATIVE); METHADONE URINE SCREEN Neg (NEGATIVE); OPIATES URINE SCREEN NEGATIVE (NEGATIVE); PHENCYCLIDINE URINE SCREEN NEGATIVE (NEGATIVE)
[2023-05-30 12:37] LABS: TROPONIN I HIGH SENSITIVITY 24 ng/L (3.0-34)
[2023-05-30] MEDS: LORAZEPAM 0.5MG TABLET PO NR ×2 (12:39→12:40)
[2023-05-30 16:03] VITALS: BP 146/82; PULSE 86; RESP 16; TEMP 98
[2023-05-30] MEDS ORDERED: CLONIDINE 0.1MG TABLET PO ONE (16:45)
== END 2023-05-30 18:05 | disposition short-term general hospital (02) ==
LOC: ER 09:59 → CANBEDREQ 06-01 21:22
DX: E86.0 Dehydration (principal); R40.20 Unspecified coma; I10 Essential (primary) hypertension; Z86.73 Personal history of transient ischemic attack (TIA), and cerebral infarction without residual deficits; Z98.890 Other specified postprocedural states; Z20.822 Contact with and (suspected) exposure to COVID-19
CPT/HCPCS: 36415; 71045; 80053; 80305; 80307; 80320; 80329; 81003; 84484; 85025; 87426; 93005; 99285; G0480

== ENCOUNTER 2024-01-21 02:45 | Inpatient (IN) | payer BC, MEDICAID, MEDICARE ==
[~2024-01-21] VITALS: Ht 160 cm; Wt 44.0 kg
[~2024-01-21 02:45] MED LIST changes: -COM10 MT; +PROC10TA65 MT
[2024-01-21] MEDS: IPRATROPIUM BROMIDE (0.02%) 0.5MG/2.5ML NEB HHN STA (02:55)
[2024-01-21 03:35] LABS: BASOPHILS % 0.5 % (0.0-2.0); EOSINOPHILS % 1.4 % (0.0-5.0); HEMATOCRIT. 40.9 % (36.0-48.0); HEMOGLOBIN. 13.3 g/dL (12.0-16.0); LYMPHOCYTES % 16.9 % (20.0-50.0); MEAN CORPUSCULAR HEMOGLOBIN 28.9 pg (28.0-32.0); MEAN CORPUSCULAR HGB CONC 32.6 g/dL (31.0-37.0); MEAN CORPUSCULAR VOLUME 88.8 fL (81.0-99.0); MEAN PLATELET VOLUME 9.9 fl (7.4-10.4); MONOCYTES % 6.5 % (2.0-8.0); NEUTROPHILS % 74.7 % (40.0-76.0); PLATELET 217 x1000/uL (130-400); RED BLOOD CELL COUNT 4.61 mill/uL (4.2-5.4); RED CELL DISTRIBUTION WIDTH 14.9 % (11.6-14.6); WHITE BLOOD COUNT 10.8 x1000/uL (4.5-11.0)
[2024-01-21 03:41] LABS: BG BASE EXCESS 0.9 mmol/L (-2.0-3.0); BG CARBOXYHEMOGLOBIN 1.1 % (0.5-1.5); BG DEOXYHEMOGLOBIN 2.5 % (0.0-5.0); BG FRACTION INSPIRED OXYGEN 100; BG HCO3 ACT 25.5 mmol/L (21.0-28.0); BG METHEMOGLOBIN 0.3 % (0.5-1.5); BG OXYGEN SATURATION 97.5 % (94.0-98.0); BG OXYHEMOGLOBIN 96.1 % (94.0-98.0); BG PCO2 40.7 mmHg (32.0-45.0); BG PH 7.415 (7.350-7.450); BG PO2 89.9 mmHg (83.0-108.0); BG TOTAL HEMOGLOBIN 12.9 g/dL (12.0-16.0); BG VENT MODE MASK - NRB
[2024-01-21] MEDS: AZITHROMYCIN 500MG/250ML 250 ML IV SCH (03:43)
[2024-01-21] MEDS: METHYLPREDNISOLONE SOD SUCC 125MG/2ML (ACT-O-VIAL) IV STA (03:43)
[2024-01-21] MEDS: MAGNESIUM 2 G PREMIX 50 ML IV ONE (03:43)
[2024-01-21 03:44] LABS: CHLORIDE 105 mEq/L (98-107); SODIUM 136 mEq/L (136-145)
[2024-01-21 03:45] LABS: CALCIUM 9.6 mg/dL (8.7-10.4); CARBON DIOXIDE 24 mEq/L (21-32)
[2024-01-21 03:48] LABS: INR 0.9; PARTIAL THROMBOPLASTIN TIME 22.3 sec (23.4-31.0); PROTHROMBIN TIME 9.7 sec (9.6-11.0)
[2024-01-21 03:50] LABS: GLUCOSE 305 mg/dL (70-105); UREA NITROGEN BLOOD 27 mg/dL (9-23)
[2024-01-21 03:51] LABS: CREATININE 1.3 mg/dL (0.6-1.0); ETHANOL BLOOD < 10 mg/dL (<10); TROPONIN I HIGH SENSITIVITY 31 ng/L (3.0-34)
[2024-01-21] MEDS: ALBUTEROL (0.083%) 2.5MG/3ML NEB HHN NR (04:00)
[2024-01-21] MEDS: IPRATROPIUM BROMIDE (0.02%) 0.5MG/2.5ML NEB HHN NR (04:00)
[2024-01-21] MEDS: ALBUTEROL (0.083%) 2.5MG/3ML NEB HHN STA (04:00)
[2024-01-21 04:02] VITALS: PULSE 86; RESP 18; O2SAT 100
[2024-01-21] MEDS: FUROSEMIDE 40MG/4ML VIAL IVP ONE (04:45)
[2024-01-21] MEDS: CEFTRIAXONE 1GM/50ML 50 ML IV ONE (05:55)
[2024-01-21 06:07] LABS: TROPONIN I HIGH SENSITIVITY 145 ng/L (3.0-34)
[2024-01-21 08:45] LABS: *AMPHETAMINES SCREEN URINE NEGATIVE (NEGATIVE); *BARBITURATES SCREEN URINE NEGATIVE (NEGATIVE); *BENZODIAZEPINES SCREEN URINE NEGATIVE (NEGATIVE); *COCAINE SCREEN URINE NEGATIVE (NEGATIVE); CANNABINOID URINE SCREEN PRESUMPTIVE POSITIVE (NEGATIVE); METHADONE URINE SCREEN NEGATIVE (NEGATIVE); OPIATES URINE SCREEN NEGATIVE (NEGATIVE); PHENCYCLIDINE URINE SCREEN NEGATIVE (NEGATIVE)
[2024-01-21 08:46] LABS: ECSTASY MDMA SCREEN URINE NEGATIVE (NEGATIVE)
[2024-01-21] MEDS ORDERED: DEXTROSE 50% WATER 50ML SYRINGE IV PRN (09:30)
[2024-01-21] MEDS ORDERED: ONDANSETRON HCL 4MG/2ML INJ IV PRN (09:30)
[2024-01-21] MEDS: CLONIDINE 0.1MG TABLET PO PRN (10:53)
[2024-01-21] MEDS: INSULIN LISPRO 100 UNITS/ML SUBCUT SCH (10:53)
[2024-01-21] MEDS: BLOOD SUGAR DIAGNOSTIC STRIP TEST SCH (10:54)
[2024-01-21] MEDS: ENOXAPARIN 30MG/0.3ML SYR SUBCUT SCH (13:23)
[2024-01-21 15:54] LABS: TROPONIN I HIGH SENSITIVITY 6 ng/L (3.0-34)
[2024-01-21 17:56] VITALS: BP 176/89; PULSE 83; RESP 18; TEMP 36.5292
[2024-01-21 20:00] VITALS: BP 134/68; PULSE 84; RESP 20; TEMP 36.72516; O2SAT 100
[2024-01-21] MEDS: ATORVASTATIN CALCIUM 20MG TABLET PO SCH (20:48)
[2024-01-21] MEDS: AMLODIPINE 5MG TABLET PO SCH (20:49)
[2024-01-22] VITALS (10 sets, daily range): BP systolic 138–173; BP diastolic 77–96; PULSE 80–90; RESP 18–19; TEMP 36.61404–37.503; O2SAT 96–100
[2024-01-22 00:49] LABS: TROPONIN I HIGH SENSITIVITY 3447 ng/L (3.0-34)
[2024-01-22] MEDS: AZITHROMYCIN 500MG/250ML 250 ML IV SCH (03:38)
[2024-01-22] MEDS: CEFTRIAXONE 2GM/50ML 50 ML IV SCH (05:43)
[2024-01-22 07:13] LABS: CALCIUM 9.6 mg/dL (8.7-10.4)
[2024-01-22 07:18] LABS: CREATININE 1.3 mg/dL (0.6-1.0)
[2024-01-22 07:19] LABS: HEMATOCRIT. 36.6 % (36.0-48.0); MEAN CORPUSCULAR HEMOGLOBIN 28.9 pg (28.0-32.0); MEAN CORPUSCULAR HGB CONC 32.7 g/dL (31.0-37.0); MEAN CORPUSCULAR VOLUME 88.3 fL (81.0-99.0); MEAN PLATELET VOLUME 10.3 fl (7.4-10.4); PLATELET 238 x1000/uL (130-400); RED BLOOD CELL COUNT 4.15 mill/uL (4.2-5.4); WHITE BLOOD COUNT 13.6 x1000/uL (4.5-11.0)
[2024-01-22 08:05] LABS: DIFFERENTIAL COMMENT 1
[2024-01-22] MEDS: ASPIRIN 81MG TABLET PO SCH (08:30)
[2024-01-22] MEDS: IPRATROPIUM/ALBUTEROL 0.5-3(2.5)MG/3ML NEB HHN SCH (09:15)
[2024-01-22] MEDS: METOPROLOL TARTRATE 50MG TABLET PO SCH (10:51)
[2024-01-22] MEDS: ENOXAPARIN 40MG/0.4ML SYR SUBCUT SCH (10:52)
[2024-01-22 11:58] LABS: TROPONIN I HIGH SENSITIVITY 1903 ng/L (3.0-34)
[2024-01-22] MEDS: IPRATROPIUM/ALBUTEROL 0.5-3(2.5)MG/3ML NEB HHN PRN (17:52)
[2024-01-23] VITALS (10 sets, daily range): BP systolic 134–166; BP diastolic 69–90; PULSE 72–89; RESP 18–20; TEMP 36.3918–37.11408; O2SAT 96–100
[2024-01-23 05:27] LABS: PLATELET ESTIMATE NORMAL
[2024-01-23 07:45] LABS: CALCIUM 9.6 mg/dL (8.7-10.4); POTASSIUM 4.8 mEq/L (3.5-5.1)
[2024-01-23 07:47] LABS: BASOPHILS % 0.6 % (0.0-2.0); EOSINOPHILS % 0.4 % (0.0-5.0); HEMATOCRIT. 33.6 % (36.0-48.0); HEMOGLOBIN. 10.9 g/dL (12.0-16.0); LYMPHOCYTES % 24.4 % (20.0-50.0); MEAN CORPUSCULAR HEMOGLOBIN 28.9 pg (28.0-32.0); MEAN CORPUSCULAR HGB CONC 32.5 g/dL (31.0-37.0); MEAN PLATELET VOLUME 10.9 fl (7.4-10.4); MONOCYTES % 9.1 % (2.0-8.0); NEUTROPHILS % 65.5 % (40.0-76.0); PLATELET 210 x1000/uL (130-400); RED BLOOD CELL COUNT 3.77 mill/uL (4.2-5.4); RED CELL DISTRIBUTION WIDTH 14.7 % (11.6-14.6); WHITE BLOOD COUNT 11.6 x1000/uL (4.5-11.0)
[2024-01-23 07:51] LABS: CREATININE 1.1 mg/dL (0.6-1.0)
[2024-01-23] MEDS ORDERED: AMLODIPINE 5MG TABLET PO SCH (21:00)
[2024-01-24] VITALS (9 sets, daily range): BP systolic 128–166; BP diastolic 63–82; PULSE 68–86; RESP 16–19; TEMP 36.16956–37.00296; O2SAT 96–100
[2024-01-24 08:33] LABS: CREATININE 1.2 mg/dL (0.6-1.0)
[2024-01-24 08:57] LABS: BASOPHILS % 0.7 % (0.0-2.0); EOSINOPHILS % 1.7 % (0.0-5.0); HEMATOCRIT. 32.2 % (36.0-48.0); HEMOGLOBIN. 10.8 g/dL (12.0-16.0); LYMPHOCYTES % 25.7 % (20.0-50.0); MEAN CORPUSCULAR HEMOGLOBIN 29.5 pg (28.0-32.0); MEAN CORPUSCULAR HGB CONC 33.4 g/dL (31.0-37.0); MEAN CORPUSCULAR VOLUME 88.3 fL (81.0-99.0); MEAN PLATELET VOLUME 10.6 fl (7.4-10.4); MONOCYTES % 7.5 % (2.0-8.0); NEUTROPHILS % 64.4 % (40.0-76.0); PLATELET 222 x1000/uL (130-400); RED BLOOD CELL COUNT 3.65 mill/uL (4.2-5.4); RED CELL DISTRIBUTION WIDTH 14.4 % (11.6-14.6); WHITE BLOOD COUNT 7.7 x1000/uL (4.5-11.0)
[2024-01-25] VITALS (10 sets, daily range): BP systolic 140–177; BP diastolic 69–96; PULSE 58–80; RESP 12–19; TEMP 35.89176–36.89184; O2SAT 93–100
[2024-01-25] MEDS: ACETAMINOPHEN 325MG TABLET PO PRN (01:39)
[2024-01-25] MEDS: DIPHENHYDRAMINE 50MG/ML VIAL IV PRN (01:39)
[2024-01-25] MEDS: AZITHROMYCIN 500 MG TABLET PO SCH (05:41)
[2024-01-25 05:45] LABS: POTASSIUM 4.6 mEq/L (3.5-5.1)
[2024-01-25 05:50] LABS: CREATININE 1.2 mg/dL (0.6-1.0)
[2024-01-25 06:11] LABS: BASOPHILS % 0.4 % (0.0-2.0); EOSINOPHILS % 1.5 % (0.0-5.0); HEMATOCRIT. 32.4 % (36.0-48.0); HEMOGLOBIN. 10.6 g/dL (12.0-16.0); LYMPHOCYTES % 14.1 % (20.0-50.0); MEAN CORPUSCULAR HEMOGLOBIN 29.2 pg (28.0-32.0); MEAN CORPUSCULAR HGB CONC 32.7 g/dL (31.0-37.0); MEAN CORPUSCULAR VOLUME 89.4 fL (81.0-99.0); MONOCYTES % 6.8 % (2.0-8.0); NEUTROPHILS % 77.2 % (40.0-76.0); PLATELET 234 x1000/uL (130-400); RED BLOOD CELL COUNT 3.63 mill/uL (4.2-5.4); RED CELL DISTRIBUTION WIDTH 14.4 % (11.6-14.6); WHITE BLOOD COUNT 9.2 x1000/uL (4.5-11.0)
[2024-01-25] MEDS: CLONIDINE 0.2MG TABLET PO SCH (09:03)
[2024-01-25] MEDS ORDERED: IODIXANOL 320MG/ML 100 ML BOTTLE IV ONE (13:26)
[2024-01-25] MEDS ORDERED: LIDOCAINE HCL 1% 10 MG/ML 10ML VIAL ONE (13:26)
[2024-01-25] MEDS ORDERED: HEPARIN 1000 UNITS/ML 10ML ONE (13:26)
[2024-01-25] MEDS ORDERED: MIDAZOLAM HCL 2 MG/2 ML VIAL ONE (13:56)
[2024-01-25] MEDS ORDERED: FENTANYL CITRATE/PF 50MCG/ML 2ML VIAL ONE (13:56)
[2024-01-25] MEDS ORDERED: ATROPINE SULFATE 1MG/10ML SYR IV PRN (14:45)
[2024-01-25] MEDS ORDERED: ACETAMINOPHEN 325MG TABLET PO PRN (14:45)
[2024-01-26] VITALS (10 sets, daily range): BP systolic 120–177; BP diastolic 66–116; PULSE 60–78; RESP 15–20; TEMP 36.05844–36.72516; O2SAT 94–100
[2024-01-26 06:45] LABS: CALCIUM 9.4 mg/dL (8.7-10.4); POTASSIUM 4.6 mEq/L (3.5-5.1)
[2024-01-26 06:50] LABS: CREATININE 1.2 mg/dL (0.6-1.0)
[2024-01-26 06:51] LABS: BASOPHILS % 0.8 % (0.0-2.0); EOSINOPHILS % 2.4 % (0.0-5.0); HEMATOCRIT. 32.2 % (36.0-48.0); HEMOGLOBIN. 10.5 g/dL (12.0-16.0); MEAN CORPUSCULAR HEMOGLOBIN 29.1 pg (28.0-32.0); MEAN CORPUSCULAR HGB CONC 32.6 g/dL (31.0-37.0); MEAN CORPUSCULAR VOLUME 89.3 fL (81.0-99.0); MEAN PLATELET VOLUME 9.6 fl (7.4-10.4); MONOCYTES % 6.7 % (2.0-8.0); NEUTROPHILS % 65.1 % (40.0-76.0); PLATELET 258 x1000/uL (130-400); RED BLOOD CELL COUNT 3.61 mill/uL (4.2-5.4); RED CELL DISTRIBUTION WIDTH 14.3 % (11.6-14.6); WHITE BLOOD COUNT 6.6 x1000/uL (4.5-11.0)
[2024-01-26] MEDS: HYDRALAZINE HCL 50MG TABLET PO SCH (12:34)
[2024-01-26] MEDS ORDERED: NITROGLYCERIN 0.4MG TABLET SL SL PRN (21:30)
[2024-01-26] MEDS ORDERED: ALPRAZOLAM 0.25 MG TABLET PO PRN (21:30)
[2024-01-26] MEDS ORDERED: ACETAMINOPHEN 325MG TABLET PO PRN (21:30)
[2024-01-26] MEDS: SODIUM CHLORIDE 0.9% 3ML FLUSH IVF SCH (21:58)
[2024-01-27] VITALS: BP 155/79; PULSE 71; RESP 18; TEMP 36.3918; O2SAT 99
[2024-01-27 04:00] VITALS: BP 162/75; PULSE 66; RESP 14; TEMP 36.55848; O2SAT 98
[2024-01-27 07:44] LABS: CALCIUM 9.1 mg/dL (8.7-10.4)
[2024-01-27 07:48] LABS: CREATININE 1.3 mg/dL (0.6-1.0)
[2024-01-27 07:50] LABS: BASOPHILS % 0.5 % (0.0-2.0); EOSINOPHILS % 1.6 % (0.0-5.0); HEMATOCRIT. 32.4 % (36.0-48.0); HEMOGLOBIN. 10.4 g/dL (12.0-16.0); LYMPHOCYTES % 14.1 % (20.0-50.0); MEAN CORPUSCULAR HEMOGLOBIN 28.5 pg (28.0-32.0); MEAN CORPUSCULAR VOLUME 89.1 fL (81.0-99.0); MEAN PLATELET VOLUME 9.5 fl (7.4-10.4); MONOCYTES % 7.7 % (2.0-8.0); NEUTROPHILS % 76.1 % (40.0-76.0); PLATELET 272 x1000/uL (130-400); RED BLOOD CELL COUNT 3.63 mill/uL (4.2-5.4); RED CELL DISTRIBUTION WIDTH 14.6 % (11.6-14.6); WHITE BLOOD COUNT 8.8 x1000/uL (4.5-11.0)
[2024-01-27 08:00] VITALS: BP 136/97; PULSE 69; RESP 15; TEMP 36.6696; O2SAT 97
[2024-01-27 12:00] VITALS: BP 133/60; PULSE 59; RESP 13; TEMP 36.83628; O2SAT 99
[2024-01-27] MEDS: POLYETHYLENE GLYCOL 3350 (17GM) 1 DOSE PACK PO NR (13:41)
[2024-01-27 16:00] VITALS: BP 116/60; PULSE 59; RESP 16; TEMP 36.89184; O2SAT 97
[2024-01-27 20:00] VITALS: BP 134/67; PULSE 63; RESP 17; TEMP 36.55848; O2SAT 98
[2024-01-27] MEDS: ASCORBIC ACID 500 MG TABLET PO SCH (20:38)
[2024-01-27] MEDS: DOCUSATE SODIUM 100MG CAPSULE PO SCH (20:40)
[2024-01-27] MEDS: LACTULOSE 20G/30ML UDC PO PRN (20:40)
[2024-01-27] MEDS ORDERED: BISACODYL 10MG SUPP PR PRN (21:00)
[2024-01-27] MEDS: CHLORHEXIDINE GLUCONATE 4% EXTERNAL USE TOP SCH (23:23)
[2024-01-28] VITALS (45 sets, daily range): BP systolic 0–204; BP diastolic 0–128; PULSE 0–146; RESP 0–45; TEMP 36.28068–37.83636; O2SAT 91–100
[2024-01-28] MEDS: ALLOPURINOL 300 MG TABLET PO SCH (00:33)
[2024-01-28] MEDS ORDERED: PAPAVERINE HCL 180MG in SODIUM CHLORIDE 0.9% 24ML IV NR (05:00)
[2024-01-28] MEDS ORDERED: AMINOCAPROIC ACID 5,000 MG in SODIUM CHLORIDE 0.9% 250 ML IV NR (05:00)
[2024-01-28] MEDS ORDERED: EPINEPHRINE 5 MG in DEXT 5% WATER 250 ML IV PRN (05:00)
[2024-01-28] MEDS ORDERED: INSULIN REGULAR 100 U/100 ML PREMIX IV PRN (05:00)
[2024-01-28] MEDS ORDERED: DOBUTAMINE 250 MG/250 ML PREMIX IV PRN (05:00)
[2024-01-28] MEDS ORDERED: CEFAZOLIN 2GM/100ML 100 ML IV NR (05:00)
[2024-01-28] MEDS ORDERED: DEL NIDO CARDIOPLEGIA 1,000 ML (CHMC) IV NR ×2 (05:00)
[2024-01-28] MEDS ORDERED: DOPAMINE 400 MG PREMIX 250 ML IV PRN (05:00)
[2024-01-28] MEDS: CHLORHEXIDINE GLUCONATE 4% EXTERNAL USE TOP SCH (05:40)
[2024-01-28] MEDS: INSULIN LISPRO 100 UNITS/ML SUBCUT NR (06:11)
[2024-01-28] MEDS ORDERED: PHENYLEPHRINE 50MG/250ML PMX 250 ML IV ONE (06:27)
[2024-01-28] MEDS ORDERED: POLYMYXIN B SULFATE 500000 UNITS/VIAL ONE (06:29)
[2024-01-28] MEDS ORDERED: THROMBIN (BOVINE) 5000 UNITS/VIAL TOP ONE ×5 (06:30→15:08)
[2024-01-28] MEDS ORDERED: SKIN ADHESIVE 0.7 GM EA TOP ONE (06:30)
[2024-01-28] MEDS ORDERED: NITROGLYCERIN 50MG PREMIX 250 ML IV ONE (06:36)
[2024-01-28] MEDS ORDERED: SEVOFLURANE 250 ML LIQUID INH ONE (06:36)
[2024-01-28] MEDS ORDERED: DEXMEDETOMIDINE 400 MCG/100 ML 100 ML IV ONE (06:37)
[2024-01-28] MEDS ORDERED: HEPARIN 1000 UNITS/ML 10ML ONE (06:38)
[2024-01-28 07:17] LABS: BASOPHILS % 0.7 % (0.0-2.0); HEMOGLOBIN. 10.5 g/dL (12.0-16.0); LYMPHOCYTES % 15.1 % (20.0-50.0); MEAN CORPUSCULAR HEMOGLOBIN 28.3 pg (28.0-32.0); MEAN CORPUSCULAR VOLUME 88.7 fL (81.0-99.0); MONOCYTES % 5.3 % (2.0-8.0); NEUTROPHILS % 76.9 % (40.0-76.0); PLATELET 278 x1000/uL (130-400); RED BLOOD CELL COUNT 3.72 mill/uL (4.2-5.4); RED CELL DISTRIBUTION WIDTH 14.2 % (11.6-14.6); WHITE BLOOD COUNT 8.3 x1000/uL (4.5-11.0)
[2024-01-28] MEDS ORDERED: DEXAMETHASONE 4MG/ML 1ML VIAL ONE (07:23)
[2024-01-28] MEDS ORDERED: PROPOFOL 200MG/20ML VIAL IV ONE ×2 (07:23→15:33)
[2024-01-28] MEDS ORDERED: SUCCINYLCHOLINE CHLORIDE 200MG/10ML IV ONE (07:23)
[2024-01-28] MEDS ORDERED: VECURONIUM BROMIDE 10 MG/VIAL IV ONE ×2 (07:23→12:05)
[2024-01-28] MEDS ORDERED: FENTANYL CITRATE/PF 50MCG/ML 2ML VIAL ONE ×3 (07:25→15:49)
[2024-01-28 07:30] LABS: CHLORIDE 107 mEq/L (98-107); POTASSIUM 4.4 mEq/L (3.5-5.1); SODIUM 136 mEq/L (136-145)
[2024-01-28 07:31] LABS: CALCIUM 9.1 mg/dL (8.7-10.4); CARBON DIOXIDE 20 mEq/L (21-32)
[2024-01-28 07:34] LABS: UREA NITROGEN BLOOD 31 mg/dL (9-23)
[2024-01-28 07:36] LABS: CREATININE 1.3 mg/dL (0.6-1.0)
[2024-01-28 07:37] LABS: GLUCOSE 277 mg/dL (70-105)
[2024-01-28 07:38] LABS: ALANINE AMINOTRANSFERASE 13 IU/L (10-49); ALBUMIN 3.5 g/dL (3.2-4.8); ASPARTATE AMINOTRANSFERASE 16 IU/L (<34)
[2024-01-28 07:39] LABS: BILIRUBIN DIRECT 0.1 mg/dL (<=3.0); BILIRUBIN TOTAL 0.4 mg/dL (0.1-1.0); INR 0.9; PHOSPHORUS 4.1 mg/dL (2.5-4.9); PROTEIN TOTAL 7.1 g/dL (6.0-8.3); PROTHROMBIN TIME 10.3 sec (9.6-11.0)
[2024-01-28] MEDS ORDERED: PHENYLEPHRINE HCL 10MG/ML 1ML IV ONE (08:14)
[2024-01-28] MEDS ORDERED: GLYCOPYRROLATE 0.2 MG/ML 2ML VIAL ONE (09:46)
[2024-01-28] MEDS ORDERED: EPHEDRINE SULFATE 50MG/ML VIAL ONE (09:47)
[2024-01-28] MEDS ORDERED: LIDOCAINE HCL/EPINEPHRINE 1%-EPI 1:100,000 20ML VIAL ONE (10:03)
[2024-01-28] MEDS ORDERED: BUPIVACAINE HCL/PF 0.5% (5MG/ML) 10ML ONE (10:04)
[2024-01-28] MEDS ORDERED: BUPIVACAINE HCL/PF 0.25% (2.5MG/ML) 10ML INFIL SCH (10:15)
[2024-01-28] MEDS ORDERED: DEXTROSE 50% WATER 50ML SYRINGE IV PRN ×2 (11:00)
[2024-01-28] MEDS ORDERED: MAGNESIUM 1 G PREMIX 100 ML IV PRN ×2 (11:00→17:00)
[2024-01-28] MEDS ORDERED: MAGNESIUM SULFATE 3 GM in DEXT 5% WATER 100 ML IV PRN ×2 (11:00→17:00)
[2024-01-28] MEDS ORDERED: KCL 10MEQ/50ML PREMIX 200 ML IV PRN (11:00)
[2024-01-28] MEDS ORDERED: KCL 10MEQ/50ML PREMIX 150 ML IV PRN (11:00)
[2024-01-28] MEDS ORDERED: KCL 10MEQ/50ML PREMIX 100 ML IV PRN (11:00)
[2024-01-28] MEDS ORDERED: MAGNESIUM 2 G PREMIX 50 ML IV PRN ×2 (11:00→17:00)
[2024-01-28] MEDS ORDERED: SODIUM BICARBONATE 8.4% 50MEQ/50ML SYR IV ONE (11:25)
[2024-01-28] MEDS ORDERED: MIDAZOLAM HCL 2 MG/2 ML VIAL ONE (12:06)
[2024-01-28] MEDS: BLOOD SUGAR DIAGNOSTIC STRIP TEST SCH (14:00)
[2024-01-28] MEDS ORDERED: PROTAMINE SULFATE 10MG/ML VIAL 25ML IV ONE (14:16)
[2024-01-28] MEDS ORDERED: CALCIUM CHLORIDE 1GM/10ML SYR IV ONE (14:22)
[2024-01-28] MEDS ORDERED: ACETAMINOPHEN 1000MG/100ML 100 ML IV NR (16:30)
[2024-01-28 16:55] LABS: CHLORIDE 110 mEq/L (98-107); POTASSIUM 4.7 mEq/L (3.5-5.1); SODIUM 140 mEq/L (136-145)
[2024-01-28 16:56] LABS: CALCIUM 8.3 mg/dL (8.7-10.4); CARBON DIOXIDE 23 mEq/L (21-32)
[2024-01-28 17:00] LABS: HEMATOCRIT. 28.5 % (36.0-48.0); HEMOGLOBIN. 9.3 g/dL (12.0-16.0); MEAN CORPUSCULAR HEMOGLOBIN 29.2 pg (28.0-32.0); MEAN CORPUSCULAR HGB CONC 32.7 g/dL (31.0-37.0); MEAN CORPUSCULAR VOLUME 89.4 fL (81.0-99.0); PLATELET 128 x1000/uL (130-400); RED BLOOD CELL COUNT 3.19 mill/uL (4.2-5.4); RED CELL DISTRIBUTION WIDTH 14.5 % (11.6-14.6); WHITE BLOOD COUNT 18.1 x1000/uL (4.5-11.0)
[2024-01-28] MEDS ORDERED: ONDANSETRON HCL 4MG/2ML INJ IV PRN (17:00)
[2024-01-28] MEDS ORDERED: OXYCODONE HCL/ACETAMINOPHEN 5/325MG TABLET PO PRN ×2 (17:00)
[2024-01-28] MEDS ORDERED: SODIUM CHLORIDE 0.9% 500 ML IV PRN (17:00)
[2024-01-28] MEDS ORDERED: ALBUMIN HUMAN 12.5G/250ML (5%) IV PRN (17:00)
[2024-01-28] MEDS ORDERED: IPRATROPIUM/ALBUTEROL 0.5-3(2.5)MG/3ML NEB HHN SCH (17:00)
[2024-01-28] MEDS ORDERED: EPINEPHRINE 5 MG in DEXT 5% WATER 245 ML IV PRN (17:00)
[2024-01-28] MEDS: MAGNESIUM HYDROXIDE 400MG/5ML 30ML UDC PO SCH (17:00)
[2024-01-28] MEDS ORDERED: NOREPINEPHRINE 8 MG in DEXT 5% WATER 242 ML IV PRN (17:00)
[2024-01-28] MEDS ORDERED: ACETAMINOPHEN 325MG TABLET PO PRN (17:00)
[2024-01-28 17:01] LABS: CREATININE 1.1 mg/dL (0.6-1.0); DIFFERENTIAL COMMENT 1; GLUCOSE 255 mg/dL (70-105); UREA NITROGEN BLOOD 24 mg/dL (9-23)
[2024-01-28 17:03] LABS: ALANINE AMINOTRANSFERASE 12 IU/L (10-49); ALBUMIN 2.6 g/dL (3.2-4.8); ASPARTATE AMINOTRANSFERASE 51 IU/L (<34); BILIRUBIN TOTAL 0.9 mg/dL (0.1-1.0); PHOSPHORUS 4.2 mg/dL (2.5-4.9)
[2024-01-28 17:12] LABS: INR 1.2; PARTIAL THROMBOPLASTIN TIME 35.9 sec (23.4-31.0); PROTEIN TOTAL 4.3 g/dL (6.0-8.3); PROTHROMBIN TIME 13.1 sec (9.6-11.0)
[2024-01-28 17:29] LABS: BG BASE EXCESS -5.8 mmol/L (-2.0-3.0); BG CARBOXYHEMOGLOBIN 0.4 % (0.5-1.5); BG DEOXYHEMOGLOBIN 3.4 % (0.0-5.0); BG FRACTION INSPIRED OXYGEN 50; BG HCO3 ACT 19.3 mmol/L (21.0-28.0); BG METHEMOGLOBIN 0.3 % (0.5-1.5); BG OXYGEN SATURATION 96.6 % (94.0-98.0); BG OXYHEMOGLOBIN 95.9 % (94.0-98.0); BG PCO2 36.3 mmHg (32.0-45.0); BG PH 7.343 (7.350-7.450); BG PO2 98.2 mmHg (83.0-108.0); BG SAMPLE SITE ALINE; BG TOTAL HEMOGLOBIN 9.6 g/dL (12.0-16.0); BG TOTAL RESPIRATORY RATE 16 b/min; BG VENT MODE VENT - SIMV
[2024-01-28] MEDS ORDERED: NOREPINEPHRINE 8MG/250ML PMX 250ML IV PRN (17:30)
[2024-01-28] MEDS: NICARDIPINE IV PRN (17:38)
[2024-01-28] MEDS: NS IV PRN (17:38)
[2024-01-28] MEDS ORDERED: CEFAZOLIN 1000MG PREMIX 50 ML IV SCH (18:00)
[2024-01-28] MEDS: INSULIN REGULAR 100U/100ML PMX 100 ML IV SCH (18:23)
[2024-01-28] MEDS: DEXT 5%/0.45% NACL 1000ML 1,000 ML IV SCH (18:24)
[2024-01-28] MEDS: SODIUM BICARBONATE 8.4% 50MEQ/50ML SYR IV NR (18:25)
[2024-01-28 18:32] LABS: BG BASE EXCESS 0.7 mmol/L (-2.0-3.0); BG CARBOXYHEMOGLOBIN 1.4 % (0.5-1.5); BG DEOXYHEMOGLOBIN 4.6 % (0.0-5.0); BG FRACTION INSPIRED OXYGEN 50; BG OXYGEN SATURATION 95.3 % (94.0-98.0); BG PCO2 38.5 mmHg (32.0-45.0); BG SAMPLE SITE ALINE; BG TOTAL HEMOGLOBIN 7.7 g/dL (12.0-16.0); BG TOTAL RESPIRATORY RATE 20 b/min; BG VENT MODE VENT - CPAP
[2024-01-28 18:40] LABS: PLATELET ESTIMATE SLIGHTLY DECREASED
[2024-01-28 18:45] LABS: HEMATOCRIT. 24.7 % (36.0-48.0); HEMOGLOBIN. 8.1 g/dL (12.0-16.0); MEAN CORPUSCULAR HEMOGLOBIN 29.3 pg (28.0-32.0); MEAN CORPUSCULAR HGB CONC 32.6 g/dL (31.0-37.0); MEAN CORPUSCULAR VOLUME 89.8 fL (81.0-99.0); MEAN PLATELET VOLUME 8.8 fl (7.4-10.4); PLATELET 117 x1000/uL (130-400); RED BLOOD CELL COUNT 2.75 mill/uL (4.2-5.4); RED CELL DISTRIBUTION WIDTH 14.6 % (11.6-14.6); WHITE BLOOD COUNT 15.8 x1000/uL (4.5-11.0)
[2024-01-28 18:46] LABS: DIFFERENTIAL COMMENT 1; POTASSIUM 4.6 mEq/L (3.5-5.1)
[2024-01-28 18:48] LABS: CALCIUM 7.9 mg/dL (8.7-10.4)
[2024-01-28 18:52] LABS: CREATININE 1.2 mg/dL (0.6-1.0)
[2024-01-28 19:27] LABS: BG BASE EXCESS -1.3 mmol/L (-2.0-3.0); BG CARBOXYHEMOGLOBIN 0.6 % (0.5-1.5); BG DEOXYHEMOGLOBIN 2.7 % (0.0-5.0); BG FRACTION INSPIRED OXYGEN 50; BG HCO3 ACT 22.9 mmol/L (21.0-28.0); BG METHEMOGLOBIN 0.3 % (0.5-1.5); BG OXYGEN SATURATION 97.3 % (94.0-98.0); BG OXYHEMOGLOBIN 96.4 % (94.0-98.0); BG PCO2 35.7 mmHg (32.0-45.0); BG PH 7.425 (7.350-7.450); BG PO2 100.5 mmHg (83.0-108.0); BG SAMPLE SITE ALINE; BG TOTAL HEMOGLOBIN 7.7 g/dL (12.0-16.0); BG VENT MODE VENT - SIMV
[2024-01-28] MEDS: NOREPINEPHRINE 8 MG in DEXT 5% WATER 250 ML IV PRN (19:27)
[2024-01-28] MEDS ORDERED: NOREPINEPHRINE 8MG/250ML PMX 250 ML IV ONE (19:30)
[2024-01-28] MEDS: DOPAMINE 400MG/250ML PREMIX 250 ML IV PRN (19:30)
[2024-01-28 20:06] LABS: PLATELET ESTIMATE NORMAL
[2024-01-28] MEDS ORDERED: NICARDIPINE 40MG/200ML PREMIX 200 ML IV PRN (20:15)
[2024-01-28] MEDS ORDERED: NICARDIPINE 50 MG in SODIUM CHLORIDE 0.9% 250 ML IV PRN (20:30)
[2024-01-28 20:32] LABS: BG BASE EXCESS -0.1 mmol/L (-2.0-3.0); BG FRACTION INSPIRED OXYGEN 40; BG HCO3 ACT 23.7 mmol/L (21.0-28.0); BG METHEMOGLOBIN 0.3 % (0.5-1.5); BG OXYGEN SATURATION 94.9 % (94.0-98.0); BG OXYHEMOGLOBIN 93.7 % (94.0-98.0); BG PCO2 34.3 mmHg (32.0-45.0); BG PH 7.457 (7.350-7.450); BG PO2 72.9 mmHg (83.0-108.0); BG SAMPLE SITE ALINE; BG TOTAL HEMOGLOBIN 7.6 g/dL (12.0-16.0); BG VENT MODE VENT - CPAP
[2024-01-28] MEDS ORDERED: DOCUSATE SODIUM 100MG CAPSULE PO SCH (21:00)
[2024-01-28] MEDS: MORPHINE SULFATE 2 MG/ML INJ (NOT FOR IM USE) IV PRN (21:11)
[2024-01-28] MEDS: ALBUMIN HUMAN 12.5G/250ML (5%) IV ONE (21:22)
[2024-01-28 22:44] LABS: BG BASE EXCESS -6.8 mmol/L (-2.0-3.0); BG CARBOXYHEMOGLOBIN 1.2 % (0.5-1.5); BG DEOXYHEMOGLOBIN 5.5 % (0.0-5.0); BG FRACTION INSPIRED OXYGEN 40; BG METHEMOGLOBIN 0.3 % (0.5-1.5); BG OXYGEN SATURATION 94.4 % (94.0-98.0); BG PH 7.305 (7.350-7.450); BG PO2 82.8 mmHg (83.0-108.0); BG TOTAL HEMOGLOBIN 6.3 g/dL (12.0-16.0); BG VENT MODE COOL AEROSOL
[2024-01-28 23:35] LABS: RED BLOOD CELL COUNT 2.09 mill/uL (4.2-5.4); WHITE BLOOD COUNT 15.2 x1000/uL (4.5-11.0)
[2024-01-28 23:38] LABS: HEMATOCRIT. 18.8 % (36.0-48.0); HEMOGLOBIN. 6.1 g/dL (12.0-16.0)
[2024-01-28 23:40] LABS: MEAN CORPUSCULAR HEMOGLOBIN 29.3 pg (28.0-32.0); MEAN CORPUSCULAR HGB CONC 32.5 g/dL (31.0-37.0); MEAN CORPUSCULAR VOLUME 90.1 fL (81.0-99.0); RED CELL DISTRIBUTION WIDTH 14.7 % (11.6-14.6)
[2024-01-28 23:41] LABS: PLATELET 177 x1000/uL (130-400)
[2024-01-29 01:10] LABS: CARBON DIOXIDE 22 mEq/L (21-32); CHLORIDE 112 mEq/L (98-107); GLUCOSE 223 mg/dL (70-105); POTASSIUM 3.8 mEq/L (3.5-5.1); SODIUM 146 mEq/L (136-145)
[2024-01-29 01:11] LABS: UREA NITROGEN BLOOD 29 mg/dL (9-23)
[2024-01-29 01:12] LABS: CALCIUM 8.5 mg/dL (8.7-10.4); PHOSPHORUS 4.5 mg/dL (2.5-4.9)
[2024-01-29 03:37] LABS: CREATININE 1.7 mg/dL (0.6-1.0)
[2024-01-29] MEDS ORDERED: FAMOTIDINE 20MG/2ML VIAL IV SCH (09:00)
[2024-01-29 15:32] LABS: PLATELET ESTIMATE NORMAL
== END 2024-01-28 23:11 | DRG 233 ==
LOC: ER 02:45 → 5WST 04:55 → EDBEDREQ 05:08 → EDBEDREQTM 05:08 → 7EST 16:45 → 3WST 01-25 14:47 → CVICU 01-28 11:06
PROVIDERS: ADMIT Internal Medicine; ATTEND Internal Medicine
PROC: B2111ZZ Fluoroscopy of Multiple Coronary Arteries using Low Osmolar Contrast (ICD-10-PCS; principal; 2024-01-25)
PROC: 4A023N7 Measurement of Cardiac Sampling and Pressure, Left Heart, Percutaneous Approach (ICD-10-PCS; 2024-01-25)
PROC: B2151ZZ Fluoroscopy of Left Heart using Low Osmolar Contrast (ICD-10-PCS; 2024-01-25)
PROC: 0210099 Bypass Coronary Artery, One Artery from Left Internal Mammary with Autologous Venous Tissue, Open Approach (ICD-10-PCS; 2024-01-28)
PROC: 021109W Bypass Coronary Artery, Two Arteries from Aorta with Autologous Venous Tissue, Open Approach (ICD-10-PCS; 2024-01-28)
PROC: 06BQ4ZZ Excision of Left Saphenous Vein, Percutaneous Endoscopic Approach (ICD-10-PCS; 2024-01-28)
PROC: 02L70ZK Occlusion of Left Atrial Appendage, Open Approach (ICD-10-PCS; 2024-01-28)
PROC: 5A1935Z Respiratory Ventilation, Less than 24 Consecutive Hours (ICD-10-PCS; 2024-01-28)
PROC: 0BH17EZ Insertion of Endotracheal Airway into Trachea, Via Natural or Artificial Opening (ICD-10-PCS; 2024-01-28)
PROC: 30233N1 Transfusion of Nonautologous Red Blood Cells into Peripheral Vein, Percutaneous Approach (ICD-10-PCS; 2024-01-28)
PROC: 30233R1 Transfusion of Nonautologous Platelets into Peripheral Vein, Percutaneous Approach (ICD-10-PCS; 2024-01-28)
PROC: 5A1221Z Performance of Cardiac Output, Continuous (ICD-10-PCS; 2024-01-28)
PROC: 0W9B30Z Drainage of Left Pleural Cavity with Drainage Device, Percutaneous Approach (ICD-10-PCS; 2024-01-28)
PROC: 0W9930Z Drainage of Right Pleural Cavity with Drainage Device, Percutaneous Approach (ICD-10-PCS; 2024-01-28)
PROC: B24BZZ4 Ultrasonography of Heart with Aorta, Transesophageal (ICD-10-PCS; 2024-01-28)
DX: I21.4 Non-ST elevation (NSTEMI) myocardial infarction (principal); J18.9 Pneumonia, unspecified organism; J96.01 Acute respiratory failure with hypoxia; J44.0 Chronic obstructive pulmonary disease with (acute) lower respiratory infection; I13.0 Hypertensive heart and chronic kidney disease with heart failure and stage 1 through stage 4 chronic kidney disease, or unspecified chronic kidney disease; J44.1 Chronic obstructive pulmonary disease with (acute) exacerbation; Z20.822 Contact with and (suspected) exposure to COVID-19; E78.5 Hyperlipidemia, unspecified; F17.210 Nicotine dependence, cigarettes, uncomplicated; D72.829 Elevated white blood cell count, unspecified; N18.9 Chronic kidney disease, unspecified; E11.22 Type 2 diabetes mellitus with diabetic chronic kidney disease; I25.10 Atherosclerotic heart disease of native coronary artery without angina pectoris; M32.9 Systemic lupus erythematosus, unspecified; E86.0 Dehydration; I34.0 Nonrheumatic mitral (valve) insufficiency; I50.9 Heart failure, unspecified; Z86.73 Personal history of transient ischemic attack (TIA), and cerebral infarction without residual deficits; Z82.49 Family history of ischemic heart disease and other diseases of the circulatory system
CPT/HCPCS: 36415; 36600; 71045; 71250; 80048; 80053; 80076; 80305; 80320; 82375; 82805; 82962; 83036; 83735; 83880; 84100; 84132; 84145; 84484; 85025; 85347; 85384; 86850; 86900; 86920; 87070; 87426; 93005; 93306; 93458; 93880; 93970; 94003; 94640; 97162; 99291; C1729; C1751; C1758; C1769; C1887; C1893; J0330; J0456; J0690; J0696; J1100; J1200; J1265; J1644; J1650; J1815; J1940; J2250; J2270; J2440; J2704; J2720; J2919; J3010; J3475; J3480; J3490; J7050; J7060; J7120; L3908; P9016; P9034; P9041; Q9957; Q9967; G0480; J0131